=== PATIENT | female | born 1950 | race Caucasian/White ===

== ENCOUNTER 2018-05-04 11:03 | Emergency (ER) | payer MEDICARE, BC ==
[2018-05-04 11:11] VITALS: BMI 26.2
[2018-05-04 11:15] VITALS: O2SAT 100
--- NOTE | 2018-05-04 12:24 | C.PDOC ---
History Of Present Illness 67 y/o female with hx of HTN presents to ED for medical eval of shingles. She states she was given a shingrix vaccine on 12/10/17 and developed a rash x3 weeks later over her lumbar sacral area. Pt was given a prescription for valtrex TID by Dr. Scott for appx 3 months. Rash did not completely resolve and was switched to acyclovir 400 mg BID in March. At that time, 2nd dose of shingrix was given. Pt later broke out with another rash but in her navel. Pt now reports burning and itching sensation in abdomen. Today, she saw Dr. Scott, who recommends patient obtain an HSV culture and sensitivity from the ED. Pt has no other medical complaints. She denies any fever, chills, nausea, vomiting, chest pain, SOB, headache and weakness. Time Seen by Provider: 05/04/18 11:55 Chief Complaint (Nursing): Abnormal Skin Integrity History Per: Patient History/Exam Limitations: no limitations Onset/Duration Of Symptoms: Other (months ) Current Symptoms Are (Timing): Still Present Location Of Injury: Anterior: Abdomen Quality Of Symptoms: Painful, Itching, Draining Severity: Mild Past Medical History Reviewed: Historical Data, Nursing Documentation, Vital Signs Vital Signs: Last Vital Signs Temp 97.5 F L 05/04/18 11:13 Pulse 66 05/04/18 11:13 Resp 17 05/04/18 11:13 BP 149/87 05/04/18 11:13 Pulse Ox 100 05/04/18 11:13 - Medical History PMH: HTN Family History: States: No Known Family Hx - Social History Hx Tobacco Use: No Hx Alcohol Use: No Hx Substance Use: No - Immunization History Hx Tetanus Toxoid Vaccination: No Hx Influenza Vaccination: No Hx Pneumococcal Vaccination: No Review Of Systems Constitutional: Negative for: Fever, Chills Cardiovascular: Negative for: Chest Pain Respiratory: Negative for: Cough, Shortness of Breath Gastrointestinal: Negative for: Nausea, Vomiting Skin: Positive for: Rash Neurological: Negative for: Weakness, Headache, Dizziness Physical Exam - Physical Exam Appears: Well, Non-toxic, No Acute Distress Skin: Warm, Dry, Rash (vesicles in navel; mainly dry but some evidence of clear fluid) Head: Atraumatic, Normacephalic Eye(s): bilateral: Normal Inspection, PERRL Nose: Normal Oral Mucosa: Moist Throat: Normal, No Erythema, No Exudate Neck: Normal ROM, Supple Chest: Symmetrical Cardiovascular: Rhythm Regular Respiratory: Normal Breath Sounds, No Wheezing Gastrointestinal/Abdominal: Soft, No Tenderness Neurological/Psych: Oriented x3, Normal Speech, Normal Cognition, Normal Motor, Normal Sensation ED Course And Treatment O2 Sat by Pulse Oximetry: 100 (RA) Pulse Ox Interpretation: Normal Medical Decision Making Medical Decision Making: Plan: -- HSV culture obtained Pt instructed to f/u with Dr. Scott with results. Pt verbalized understanding and is in agreement with plan. She is stable for d/c. Disposition - Disposition Referrals: Dionisio Scott MD [Staff Provider] - Disposition: HOME/ ROUTINE Disposition Time: 12:24 Condition: STABLE Additional Instructions: Follow up with Dr. Scott for results of HSV Rapid culture Continue prescribed meds as per Dr. Scott Instructions: Gui (DC) Forms: [employer] (Occitan) - Clinical Impression Clinical Impression: Gui - PA / [employer] PROFESS[employer] / Resident Statement / has reviewed & agrees with the documentation as recorded. - Scribe Statement The provider has reviewed the documentation as recorded by the Doug Rodarte Do All medical record entries made by the Scribe were at my direction and personally dictated by me. I have reviewed the chart and agree that the record accurately reflects my personal performance of the history, physical exam, medical decision making, and the department course for this patient. I have also personally directed, reviewed, and agree with the discharge instructions and disposition.
[2018-05-04 12:39] VITALS: BP 144/82; PULSE 68; RESP 18; TEMP 98.2
== END 2018-05-04 12:41 | disposition home or self-care (01) ==
LOC: C.ER 11:03
DX: B02.9 Zoster without complications (principal)

== ENCOUNTER 2018-05-15 07:23 | Day surgery (SDC) | payer MEDICARE, BC ==
[2018-05-06 08:08] VITALS: BMI 26.2
[2018-05-15] MEDS ORDERED: Lidocaine/Epinephrine 1% 1:100000 10 ML IJ ONE (07:59)
[2018-05-15] MEDS ORDERED: Lidocaine Hydrochloride 0 ML INJ ONE (08:00)
[2018-05-15 08:17] VITALS: PULSE 72
--- NOTE | 2018-05-15 09:08 | PCM.SURG1 ---
Surgeon's Initial Post Op Note - Surgeon's Notes Surgeon: robbin [employer] Teacher: 0 Type of Anesthesia: Local Anesthesia Administered By: Pre-Operative Diagnosis: cyst Operative Findings: same Post-Operative Diagnosis: same Operation Performed: excision 2 cm cyst of skin Specimen/Specimens Removed: cyst Estimated Blood Loss: EBL {In ML}: 2 Blood Products Given: N/A Drains Used: No Drains Post-Op Condition: Good Date of Surgery/Procedure: 05/15/18 Time of Surgery/Procedure: 09:08
[2018-05-15 09:26] VITALS: BP 140/81; RESP 18; TEMP 97.3; O2SAT 100
--- NOTE | 2018-05-15 15:36 | OP ---
PROCEDURE DATE: 05/15/2018 PREOPERATIVE DIAGNOSIS: Cyst of back. POSTOPERATIVE DIAGNOSIS: Cyst of back. PROCEDURE: Excision of 2 cm sebaceous cyst of back. SURGEON: Jamie Ace Jr., MD LEATHER REPAIRER: None. TYPE OF ANESTHESIA: 1% Xylocaine with epinephrine. ANESTHESIOLOGIST: Jamie Ace Jr., MD. INDICATIONS: A 67-year-old woman, fairly good health, presents with infected cyst on her back, drains spontaneously. The residual portion is still there. OPERATIVE FINDINGS: Cyst was removed completely without rupture. The wound was then approximated after irrigating it out and the skin was closed with subcuticular closure. Steri-Strips applied. ESTIMATED BLOOD LOSS: Less than 5 mL. Jamie Ace Jr., MD
== END 2018-05-15 09:31 | disposition home or self-care (01) ==
LOC: C.SDS 07:23
PROVIDERS: ATTEND Surgery Vascular Surgery
DX: L72.3 Sebaceous cyst (principal)